=== PATIENT | female | born 1995 | race Caucasian/White ===

== ENCOUNTER → 2016-11-19 | Outpatient (CLI) | payer BC ==
[~2016-11-19] MED LIST: BCPILLS PO; KETO10TA PO; OXYC-57 PO
--- NOTE | 2016-11-19 11:56 | DIAGNOSTIC IMAGING REPORT ---
MRI OF THE LEFT KNEE CLINICAL HISTORY: Left knee injury. COMPARISON STUDY: No priors. TECHNIQUE: MRI of the left knee was performed utilizing proton density, T1, and T2-weighted sequences in the axial, sagittal, coronal planes. IV contrast was not administered for this examination. Note that interpretation is suboptimal without plain film correlate. FINDINGS: Menisci: There is a bucket-handle tear involving the posterior horn of the lateral meniscus, best seen on axial image #17. A fragment is flipped centrally into the joint space along the lateral femoral condyle, best seen on coronal image #17. The medial meniscus appears intact. Ligaments: There is moderate irregularity of the medial collateral ligament. Fluid is seen on both sides of ligament and this suggests grade 1 injury. The fibular collateral ligament, as well as the biceps femoris tendon and iliotibial band appear intact. There are suspected disruption of the lateral capsule which appears irregular with significant joint fluid. Extensor mechanism: The extensor mechanism is intact. Hoffa's fat pad is normal in appearance. Articular cartilage and bone: The articular cartilage is intact and well maintained all 3 compartments. There is bony contusion identified within the lateral femoral condyle as well as involving the posterior aspect of both the medial and lateral tibial plateau. An impaction type injury is noted in the medial femoral condyle. Joint effusion: There is a moderate and minimally complex joint effusion. Soft tissues: There is mild subcutaneous soft tissue edema as well as edema within the popliteal fossa. The musculature surrounding the knee joint is normal in bulk. There is mild edema within the body of the popliteus muscle. IMPRESSION: 1. Ruptured anterior cruciate ligament. 2. There is bucket-handle tear involving the posterior horn of the lateral meniscus. The fragment is flipped centrally into the joint space. 3. Findings are consistent with grade 1 injury of the medial collateral ligament. 4. The components of the fibular collateral ligament appear intact. Suspect tearing of the lateral capsule of the knee with significant surrounding edema. There is also edema within the body of the popliteus muscle. The popliteus tendon appears intact. A posterolateral corner injury would be difficult to exclude. 5. Bony contusions as above with impaction type injury in the lateral femoral condyle. 6. Joint effusion. Electronically signed by: Casper Tavares M.D. 11/19/2016 11:54 AM Dictated Date/Time: 11/19/2016 11:29 AM
== END | disposition home or self-care (01) ==
LOC: C.MRI 10:14
PROVIDERS: ATTEND Orthopaedic Surgery Sports Medicine
DX: S83.512A Sprain of anterior cruciate ligament of left knee, initial encounter (principal); S83.412A Sprain of medial collateral ligament of left knee, initial encounter; S83.252A Bucket-handle tear of lateral meniscus, current injury, left knee, initial encounter; X58.XXXA Exposure to other specified factors, initial encounter; M25.462 Effusion, left knee

== ENCOUNTER → 2017-01-14 | Day surgery (SDC) | payer BC ==
[2017-01-01 11:46] VITALS: Ht 160 cm; Wt 67.3 kg
[~2017-01-14] VITALS: Ht 160 cm; Wt 67.3 kg
[~2017-01-14] MED LIST changes: +ATROPINE SULFATE 0.1 MG/ML 5ML SYR IV PRN; +CEFAZOLIN 1000MG/55 ML D5W IV ONE; +CEFAZOLIN 1000MG/55 ML D5W IV SCH; +CEFAZOLIN SOD 1 GM VIAL IV ONE; +CEFAZOLIN SOD 1 GM VIAL ONE; +DEXAMETHASONE SOD INJ 4 MG/ML VIAL ONE; +EpHEDrine SULFATE INJ 50 MG/ML AMP IV PRN; +EpINEphrine INJ 1MG/ML AMP 1 MG/ML AMP ONE; +FENTANYL CITRATE INJ 50 MCG/1 ML 2 ML VIAL IV PRN; +FENTANYL CITRATE INJ 50 MCG/1 ML 2 ML VIAL ONE; +HYDROmorphone INJ 0.5 MG/0.5 ML SYR ONE; +HYDROmorphone INJ 1 MG/ML SYR IV PRN; +KETOROLAC TROMETHAMINE 30 MG/ML VIAL ONE; +LACTATED RINGER'S 1000ML 1,000 ML IV SCH; +LIDOCAINE HCL 2% 2 ML VIAL (20MG/ML) ONE; +MIDAZOLAM HCL 1 MG/ML 2ML VIAL ONE; +ONDANSETRON INJ 2 MG/ML 2 ML VIAL IV PRN; +ONDANSETRON INJ 2 MG/ML 2 ML VIAL ONE; +OXYCODONE/ACETAMINOPHEN 5-325 TAB PO PRN; +PROMETHAZINE HCL INJ 12.5 MG in SODIUM CHLORIDE 0.9% 50ML 50 ML IV PRN; +PROMETHAZINE HCL INJ 25 MG/ML 1 ML VIAL ONE; +PROPOFOL IV EMULSION 10 MG/ML 20 ML VIAL IV ONE; +ROPIVACAINE 0.5% 5 MG/ML 30 ML VIAL ONE; +SODIUM CHLORIDE 0.9% 1000ML 1,000 ML IV SCH
--- NOTE | 2017-01-14 06:59 | History & Physical Bridge - SC ---
H&P Re-Evaluation Bridge Note: I have examined the patient, reviewed the History & Physical and in the interval since the performance of the History & Physical I have noted the following changes of clinical significance: No changes noted
--- NOTE | 2017-01-14 10:04 | Discharge Instructions-SurgCtr ---
Discharge Instructions Date of Service Jan 14, 2017. Visit Reason for Visit: Left Acl Rupture Discharge Discharge Diagnosis / Problem: left ACL tear, medial and lateral meniscus tear Discharge Goals Goal(s): Decrease discomfort, Improve function, Therapeutic intervention Activity Recommendations Activity Limitations: per Instructions/Follow-up section Weightbearing Status: Left weightbearing (as tolerated with brace ) Anesthesia . Post Anesthesia Instructions: If you have had General Anesthesia or IV Sedation: * Do not drive today. * Resume driving when surgeon permits. * Do not make important decisions or sign legal documents today. * Call surgeon for: 1. Temperature elevations greater than 101 degrees F. 2. Uncontrollable pain. 3. Excessive bleeding. 4. Persistent nausea and vomiting. 5. Medication intolerance (nausea, vomiting or rash). * For nausea and vomiting use only clear liquids such as: tea, soda, bouillon until nausea subsides, then gradually increase diet as tolerated. * If you have any concerns or questions, call your surgeon's office. If physician is unavailable and it is an emergency, call 911 or go to the nearest emergency room. . Instructions / Follow-Up Instructions / Follow-Up MEDICATIONS: * Resume previous medications unless instructed otherwise by your surgeon. * Always take pain medication on a full stomach or with food to avoid upset stomach. * Do not drink alcohol or drive while taking narcotics. * Ibuprofen or Tylenol may be taken if narcotic not needed. No ibuprofen while taking toradol SPECIAL CARE INSTRUCTIONS: __ None _x_ Keep extremity elevated and iced x 48 hours; apply ice 20-30 minutes 8-10 times/day. May remove at night. _x_ Crutches __ May discard when able _x_ Brace (remove for therapy exercises) __ 24 hrs/day __ Remove at night _x_ Dressing __ Maintain until seen in office, may shower with plastic over site _x_ Remove dressings in 24-48 hours and then may shower _x_ Cover incisions with band-aids after showering _x_ Do not remove steri-strips Call physician if chills or temperature rises above 102 degrees or pain unrelieved by prescribed pain medications. Office [phone] follow up in 2 weeks Diet Recommendations Home Diet: resume previous diet Procedures Procedures Performed: Left Knee Arthroscopic Anterior Cruciate Ligament Reconstruction With Hamstring Augtograft, Chondroplasty, Partial Medial and Partial Lateral Meniscectomies Pending Studies Studies pending at discharge: no Medical Emergencies . Who to Call and When: Medical Emergencies: If at any time you feel your situation is an emergency, please call 911 immediately. . Non-Emergent Contact Non-Emergency issues call your: Primary Care Provider, Surgeon . . "Provider Documentation" section prepared by Loki Smith.
--- NOTE | 2017-01-14 10:05 | [facility] Post Operative Brief Note ---
Immediate Operative Summary Operative Date Jan 14, 2017. Pre-Operative Diagnosis Left Anterior Cruciate Ligament Rupture; Medial Meniscus Tear; Lateral Meniscus Tear; DJD Post-Operative Diagnosis Same Procedure(s) Performed Left Knee Arthroscopic Anterior Cruciate Ligament Reconstruction With Hamstring Augtograft, Chondroplasty, Partial Medial and Partial Lateral Meniscectomies Surgeon Dr. Kip Ferrell Bulb Packer Surgeon(s) Alessandra Smith PA-C Estimated Blood Loss Minimal Findings ACL Tear: Medial + Lateral Meniscus Tear; DJD Specimens None Anesthesia General Complication(s) None Disposition Recovery Room / PACU
--- NOTE | 2017-01-14 10:48 | OPERATIVE REPORT ---
DATE OF OPERATION: 01/14/2017 SURGEON: Toni Ferrell MD [employer] MANAGER: BRIDGET Olmos PREOPERATIVE DIAGNOSES: 1. Left anterior cruciate ligament tear. 2. Left knee medial meniscus tear. 3. Left knee lateral meniscus tear. POSTOPERATIVE DIAGNOSES: 1. Left knee anterior cruciate ligament tear. 2. Left knee medial meniscus tear. 3. Left knee lateral meniscus tear. 4. Left knee chondromalacia/degenerative joint disease with some grade 2 changes of the patella and some grade 2 changes of the medial femoral condyle. PROCEDURES PERFORMED: 1. Left knee exam under anesthesia. 2. Left knee diagnostic arthroscopy. 3. Left knee ACL reconstruction with 7/8 mm semitendinosis/gracilis autograft. 4. Left knee partial lateral meniscectomy. 5. Left knee partial medial meniscectomy. 6. Left knee chondroplasty of the patella. COMPLICATIONS: None. ESTIMATED BLOOD LOSS: Minimal. TOURNIQUET TIME: 72 minutes at 300 mmHg. ANESTHESIA: General. SPECIMENS: None. OPERATIVE INDICATIONS: The patient is a 21-year-old very active female who [place] her [place] just about [place] ago [place] She [place] on her knee. She had an ACL tear. This was diagnosed clinically. An MRI revealed an ACL tear and medial and lateral meniscus tears and grade 1 MCL sprain. The patient was treated and her MCL has been healed up. She has restored her range of motion and now indicated for ACL reconstruction. OPERATIVE FINDINGS: Examination under anesthesia of left knee revealed just a small knee effusion. Range of motion is full extension to 135 degrees of flexion. She had a positive Katie, grade 2 pivot, negative anterior drawer, negative posterior drawer, and no varus or valgus instability. Jonny was negative for mechanical symptoms. She had no posterolateral rotatory instability. ARTHROSCOPIC FINDINGS: Arthroscopic findings revealed a small knee effusion. She had pretty extensive grade 2 changes of the undersurface of patella. The trochlea was fairly well preserved. In the intercondylar notch, the ACL was completely torn. The PCL was intact. In the medial compartment, there was tear of the medial meniscus. The articular surface was relatively well preserved. In the lateral compartment, there was a very complex posterior horn lateral meniscus tear with a portion flipped posteriorly as well as a flap anteriorly and degenerative changes throughout. The articular surface revealed some mild age-related changes. OPERATIVE PROCEDURE: The patient was taken to the operating room, identified and placed on the operating table in the supine position. All contact areas were appropriately padded. IV antibiotics were provided by anesthesia team. An adductor canal block had been provided in the holding area. A general anesthetic was implemented. A left thigh tourniquet was then placed. Left knee was then examined under anesthesia with findings as described above. The left leg was then prepped and draped in the usual sterile fashion. Approximately 4-cm incision was made directly over the pes tendon. Sharp dissection was carried through the subcutaneous tissue down to the level of the sartorius fascia. The subcutaneous tissues were mobilized circumferentially. An oblique incision was made in the sartorius fascia above the hamstring tendons. The hamstring tendons were then taken sharply off the anterior face of the tibia. Each tendon was then isolated and a #2 Ti-Cron whipstitch was placed in the end of each tendon. Each tendon was then harvested with a closed ended tendon stripper. They were taken to the back table and they cut down to 21 cm in length. The muscle was stripped off the opposite end of the tendon. A similar #2 Ti-Cron whipstitch was placed in the opposite end of the tendon. The tendons were then folded over and the size was measured. The femoral size fit to a size 7 tunnel and the tibial side to an 8. The graft was then placed on a graft board, marked, and then tensioned until ready for implantation. During the graft preparation, routine left knee arthroscopy was then performed through typical anteromedial and anterolateral portals. Superior lateral outflow portal was established for outflow. She did have a fairly stenotic notch. A moderate notchplasty was performed. The remnant of the ACL was excised. With the use of motorized and hand control instruments, a partial lateral meniscectomy was then performed. We resected the anterior and posterior unstable components to this tear as well as some of the degenerative portion posteriorly and the superior and anterior flaps. There did seem to be a pretty good attachment posteriorly, so I did leave the peripheral rim to provide some meniscal function. Attention was then drawn to the medial meniscus. With the use of motorized and hand controlled instruments, a partial medial meniscectomy was then performed. We resected this back to stable tissue as well. Once this was complete, attention was then drawn to the ACL reconstruction. The tibial guide was used to place a guidewire in the area of the proposed tibial tunnel. It was overdrilled with an 8-mm solid reamer. Tunnel was cleaned of all debris. A 6-mm over the top guide was placed at the anteromedial portal. The knee was maximally flexed and a guidewire was placed in the area of the proposed femoral tunnel. This was overdrilled with a 4.5-mm Endobutton drill bit. I then measured the tunnel length and it measured 34 mm in length. A 15-mm closed loop Endobutton was selected. The tunnel was then over reamed with a 7-mm acorn reamer for a distance of 28 mm. The tunnel was cleaned of all debris. The graft was then passed over a 15-mm Endobutton. The Beath pin was then used to pass the graft through the tibial tunnel up into the femoral tunnel and the Endobutton was flipped. The knee was then cycled several times. It was brought out into full extension. It was tensioned using the Intrafix tensioner at 30 pounds of tension. The tunnel was dilated. A small Biocryl Intrafix sheath was placed followed by a 6/8 Biocryl Intrafix screw. This provided good distal fixation. The knee was examined. There was no Katie and no pivot. The scope was placed back in the knee joint. The graft was appropriately tensioned. The instruments were then used to debride the loose cartilage under the patella and remove from the knee of all extraneous debris. The arthroscopic instruments were then removed from the joint. The sartorius fascia was then closed over the medial portion of the proximal tibia with #1 Vicryl suture in a [id number] fashion. The portals were then closed with 3-0 Prolene suture in a simple fashion. The knee was injected with 30 mL of 0.5% ropivacaine with epinephrine and 30 mg of Toradol. The wound was then irrigated again. The tourniquet was then let down for a tourniquet time 72 minutes. Hemostasis was assured with use of electrocautery. The subcutaneous tissues were then closed with 2-0 Dexon suture in a buried interrupted fashion. Skin was closed with 3-0 Prolene suture in a subcuticular fashion. The leg was then cleaned and dried and a sterile dressing of Steri-Strips, Xeroform, 4 x 4s, ABD, sterile cast padding, Bayron bandage, cold pack, and knee immobilizer were applied. The patient then brought out of general anesthesia and transferred to the recovery room in stable condition. The patient tolerated the procedure well with no complications. All needle and sponge counts were correct at the end of the operation. I attest to the content of the Intraoperative Record and any orders documented therein. Any exceptions are noted below. MTDD
[2017-01-14 10:54] VITALS: TEMP 36.8
--- NOTE | 2017-01-14 11:25 | Anesthesia Progress Nt - [facility] ---
Anesthesia Post Op Note Date & Time Jan 14, 2017 at 11:25 Vital Signs Pain Intensity: 1 Vital Signs Past 12 Hours Date Time Temp Pulse Resp B/P Pulse Ox O2 Delivery O2 Flow Rate FiO2 01/14/17 10:54 36.8 93 16 122/73 99 Room Air 01/14/17 10:46 135/73 01/14/17 10:45 95 20 97 01/14/17 10:45 97 20 01/14/17 10:41 36.9 95 16 126/71 98 Room Air 01/14/17 10:41 126/71 01/14/17 10:40 84 8 99 01/14/17 10:40 85 8 01/14/17 10:36 125/63 01/14/17 10:35 68 4 01/14/17 10:35 68 4 100 01/14/17 10:34 71 20 01/14/17 10:34 68 20 100 01/14/17 10:31 141/52 01/14/17 10:29 98 23 98 01/14/17 10:29 100 23 01/14/17 10:26 134/52 01/14/17 10:24 101 18 98 01/14/17 10:24 98 18 01/14/17 10:21 132/63 01/14/17 10:19 95 12 01/14/17 10:19 91 12 97 01/14/17 10:16 131/61 01/14/17 10:14 96 14 01/14/17 10:14 93 14 99 01/14/17 10:11 129/57 01/14/17 10:09 106 24 99 01/14/17 10:09 105 24 01/14/17 10:08 97 14 01/14/17 10:08 98 14 98 01/14/17 10:06 123/64 01/14/17 10:03 110 17 01/14/17 10:03 111 17 98 01/14/17 10:01 131/65 01/14/17 09:59 140/59 01/14/17 09:58 37.1 118 12 140/59 97 Mask 6 01/14/17 08:03 86 01/14/17 08:03 80 19 99 01/14/17 08:02 77 01/14/17 08:02 75 20 99 01/14/17 08:00 122/71 01/14/17 07:57 78 01/14/17 07:57 77 17 99 01/14/17 07:56 128/75 01/14/17 07:53 77 01/14/17 07:53 78 19 99 01/14/17 07:52 75 17 98 01/14/17 07:52 76 01/14/17 07:51 124/69 01/14/17 07:47 85 01/14/17 07:47 81 17 99 01/14/17 07:46 129/67 01/14/17 07:45 84 22 100 01/14/17 07:45 85 01/14/17 07:40 92 129/70 01/14/17 07:40 92 19 124/73 100 01/14/17 07:35 81 0 98 01/14/17 07:35 81 01/14/17 07:30 79 01/14/17 07:30 83 0 98 01/14/17 06:38 37.2 101 20 134/73 98 Room Air Notes Mental Status: alert / awake / arousable, participated in evaluation Pt Amnestic to Procedure: Yes Nausea / Vomiting: improving with treatment Pain: adequately controlled Airway Patency, RR, SpO2: stable & adequate BP & HR: stable & adequate Hydration State: stable & adequate Anesthetic Complications: no major complications apparent
[2017-01-14 12:15] VITALS: BP 131/77; PULSE 89; O2SAT 97
== END | disposition home or self-care (01) ==
LOC: X.SURG 06:12
PROVIDERS: ATTEND Orthopaedic Surgery Sports Medicine
DX: S83.502A Sprain of unspecified cruciate ligament of left knee, initial encounter (principal); S83.202A Bucket-handle tear of unspecified meniscus, current injury, unspecified knee, initial encounter; S83.282A Other tear of lateral meniscus, current injury, left knee, initial encounter; W18.01XA Striking against sports equipment with subsequent fall, initial encounter; M22.40 Chondromalacia patellae, unspecified knee; M19.90 Unspecified osteoarthritis, unspecified site; Y93.44 Activity, trampolining; Y92.39 Other specified sports and athletic area as the place of occurrence of the external cause; Y99.8 Other external cause status; Z82.49 Family history of ischemic heart disease and other diseases of the circulatory system